=== PATIENT | male | born 1985 | race Caucasian/White ===

== ENCOUNTER 2021-07-25 17:51 | Outpatient (CLI) | payer OTHER | END 2021-07-25 17:52 | disposition EMS.NT | LOC: EMS 17:51 | DX: S00.31XA Abrasion of nose, initial encounter (principal); W22.8XXA Striking against or struck by other objects, initial encounter; Y92.414 Local residential or business street as the place of occurrence of the external cause ==

== ENCOUNTER 2021-07-26 09:21 | Emergency (ER) | payer OTHER ==
[2021-07-26] MEDS ORDERED: lidocaine 1% 20 ML MDV SUBQ ONE (09:29)
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
--- NOTE | 2021-07-26 10:11 | XRAY Report ---
PROCEDURE: Foot 3 View RT INDICATIONS: 1st toe injury TECHNIQUE: 3 views of the foot were acquired. COMPARISON: None FINDINGS: Bones: No fractures or dislocations. No suspicious bony lesions. Soft tissues: No tibiotalar joint effusion. Achilles tendon appears normal. IMPRESSION: No visualized acute fracture or dislocation. However, occult injury cannot be excluded. Recommend ej rt interval imaging follow-up in 7-10 days as clinically indicated for additional evaluation. Reviewed by: Amada French MD on 07/26/2021 10:09 AM PDT Approved by: Amada French MD on 07/26/2021 10:09 AM PDT Station ID: [id number]
[2021-07-26 11:06] VITALS: BP 136/84
== END 2021-07-26 11:15 | disposition home or self-care (01) ==
LOC: EDUNIT# → ED 09:21
DX: S91.111A Laceration without foreign body of right great toe without damage to nail, initial encounter (principal); S06.0X1A Concussion with loss of consciousness of 30 minutes or less, initial encounter; X58.XXXA Exposure to other specified factors, initial encounter
CPT/HCPCS: 12002; 93005; 99282; 99283